=== PATIENT | male | born 1935 | race Caucasian/White ===

== ENCOUNTER → 2019-09-10 | Outpatient (CLI) | payer MEDICARE ==
[~2019-09-10] MED LIST: OMNIPAQUE 350 MG/ML, 100ML BOTTLE ONE; REGADENOSON 0.4 MG/5 ML SYRINGE ONE
== END | disposition home or self-care (01) ==
LOC: CFH 10:03
PROVIDERS: ATTEND Nurse Practitioner Family
CPT/HCPCS: 71275 ×2; 78452 ×2; 82565 ×2; 93017 ×2; 93306 ×2; A9502; J2785 ×2; Q9967 ×2

== ENCOUNTER 2019-10-08 10:08 | Day surgery (SDC) | payer MEDICARE ==
[~2019-10-08] VITALS: Ht 165.1 cm; Wt 70.5 kg
[2019-10-08] MEDS ORDERED: SODIUM CHLORIDE 0.9% 1,000 ML IV SCH (10:22)
[2019-10-08] MEDS ORDERED: ASPIRIN 325 MG TABLET EC PO ONE (10:30)
[2019-10-08] MEDS ORDERED: POTA20TA14 PO (10:35)
[2019-10-08] MEDS ORDERED: ATOR40TA78 PO (10:35)
[2019-10-08] MEDS ORDERED: ALLO100T30 PO (10:35)
[2019-10-08] MEDS ORDERED: CARV12.52 PO (10:35)
[2019-10-08] MEDS ORDERED: ASPI81TA45 PO (10:35)
[2019-10-08] MEDS ORDERED: AMLO-150 PO (10:35)
[2019-10-08] MEDS ORDERED: MULT-658 PO (10:35)
[2019-10-08 10:50] VITALS: BP 150/81
[2019-10-08] MEDS ORDERED: PLEASE ENTER HEIGHT AND WEIGHT MC SCH (11:00)
[2019-10-08 11:05] LABS: BASOPHILS # (AUTO) 0.05 x10^3/uL (0-0.1); BASOPHILS % (AUTO) 1 % (0-1); EOSINOPHILS # (AUTO) 0.41 x10^3/uL (0-0.4); EOSINOPHILS % (AUTO) 6 % (1-7); LYMPHOCYTES # (AUTO) 1.45 x10^3/uL (1-3.4); LYMPHOCYTES % (AUTO) 22 % (22-44); MD NO; MEAN CORPUSCULAR HEMOGLOBIN 32.1 pg (27.5-34.5); MEAN CORPUSCULAR HGB CONC 33.4 g/dL (33.2-36.2); MEAN CORPUSCULAR VOLUME 96.2 fL (81-97); MEAN PLATELET VOLUME 8.1 fL (7.4-10.4); MONOCYTES # (AUTO) 0.65 x10^3/uL (0.2-0.8); MONOCYTES % (AUTO) 10 % (2-9); NEUTROPHILS # (AUTO) 4.06 x10^3/uL (1.8-6.8); NEUTROPHILS % (AUTO) 61 % (42-75); PLATELET COUNT 178 x10^3/uL (130-400); RED CELL DISTRIBUTION WIDTH 13.6 % (9.4-14.8)
[2019-10-08 11:14] LABS: ANION GAP 6 mmol/L (5-15); CALCIUM 8.5 mg/dL (8.5-10.1); CHLORIDE 109 mmol/L (98-107); CREATININE 1.22 mg/dL (0.7-1.3)
[2019-10-08] MEDS ORDERED: LIDOCAINE-MPF 1%, 5ML ONE (12:10)
[2019-10-08] MEDS ORDERED: MIDAZOLAM 1 MG/ML, 5ML ONE (12:10)
[2019-10-08] MEDS ORDERED: FENTANYL PF 100 MCG/2ML ONE (12:10)
[2019-10-08] MEDS ORDERED: VERAPAMIL 2.5 MG/ML, 2ML ONE (12:10)
[2019-10-08] MEDS ORDERED: HEPARIN 1,000 UNITS/ML, 10ML ONE (12:11)
[2019-10-08] MEDS ORDERED: BIVALIRUDIN 250 MG ONE (13:05)
== END 2019-10-08 15:20 | disposition home or self-care (01) ==
LOC: CACL 10:08
PROVIDERS: ATTEND Internal Medicine Cardiovascular Disease
DX: R07.89 Other chest pain (principal); I25.110 Atherosclerotic heart disease of native coronary artery with unstable angina pectoris; I25.84 Coronary atherosclerosis due to calcified coronary lesion; I25.83 Coronary atherosclerosis due to lipid rich plaque; I70.0 Atherosclerosis of aorta; I12.9 Hypertensive chronic kidney disease with stage 1 through stage 4 chronic kidney disease, or unspecified chronic kidney disease; N18.9 Chronic kidney disease, unspecified; E78.2 Mixed hyperlipidemia; Z79.899 Other long term (current) drug therapy
CPT/HCPCS: 36415; 71046; 80048; 85025; 93458; 93571; 99156; 99157; C1769; C1894; J1644; J2250; J3010; Q9967; J0583

== ENCOUNTER 2020-02-24 14:54 | Outpatient (CLI) | payer MEDICARE ==
[~2020-02-24 14:54] MED LIST changes: +ALLO100T30 PO; +AMLO-150 PO; +ASPI81TA45 PO; +ATOR40TA78 PO; +CARV12.52 PO; +MULT-658 PO; -OMNIPAQUE 350 MG/ML, 100ML BOTTLE ONE; +POTA20TA14 PO; -REGADENOSON 0.4 MG/5 ML SYRINGE ONE
== END 2020-02-24 23:59 | disposition home or self-care (01) ==
LOC: CFH 14:54
PROVIDERS: ATTEND Family Medicine Sports Medicine
DX: M79.89 Other specified soft tissue disorders (principal)

== ENCOUNTER → 2020-11-19 | Outpatient (CLI) | payer MEDICARE | END | disposition home or self-care (01) | LOC: CVU 06:59 | PROVIDERS: ATTEND Nurse Practitioner Family | DX: I08.0 Rheumatic disorders of both mitral and aortic valves (principal); I10 Essential (primary) hypertension | CPT/HCPCS: 93306 ==